=== PATIENT | female | born 1985 | race Caucasian/White ===

== ENCOUNTER 2022-09-10 18:49 | Emergency (ER) | payer OTHER, SELFPAY ==
[2022-09-10 19:42] VITALS: BP 152/96; PULSE 75; RESP 16; TEMP 37.2; O2SAT 99
--- NOTE | 2022-09-10 20:08 | ED.URI ---
HPI - URI/Sore Throat General Chief Complaint: Upper Respiratory Infection Stated Complaint: Cough Time Seen by Provider: 09/10/22 20:08 Source: patient, RN notes reviewed and old records reviewed Mode of arrival: ambulatory Limitations: no limitations History of Present Illness HPI Narrative: 37-year-old female presents to the [facility] with complaints cough for 4 weeks. States she has been having trouble sleeping. Denies any other symptoms. Related Data Home Medications Medication Instructions Recorded Confirmed bupropion HCl 75 mg tablet 75 mg PO DAILY 09/10/22 09/10/22 fluoxetine 20 mg capsule 20 mg PO DAILY 09/10/22 09/10/22 Allergies Allergy/AdvReac Type Severity Reaction Status Date / Time No Known Allergies Allergy Verified 09/10/22 20:05 Review of Systems Review of Systems: All systems reviewed & are unremarkable except as noted in HPI and below Constitutional: Constitutional: Reports no additional constitutional complaints Eyes: Eyes: Reports no additional eye complaints ENT: Reports system reviewed and no additional complaints, except as documented Cardiovascular: Cardiovascular: Reports no additional cardiovascular complaints, Denies chest pain and Denies dyspnea Respiratory: Respiratory: Reports as per HPI, Denies chest congestion, Reports cough, Denies dyspnea and Denies wheezing Gastrointestinal: Gastrointestinal: Reports no additional gastrointestinal complaints, Denies abdominal pain, Denies nausea and Denies vomiting Musculoskeletal: Musculoskeletal: Reports no additional musculoskeletal complaints Integumentary/Breasts: Skin/Breast: Reports system reviewed and no additional complaints, except as docu Neurologic: Reports system reviewed and no additional complaints, except as documented Psychiatric: Psychiatric: Reports no additional psychiatric complaints Allergic/Immunologic: Allergic/Immunologic: Reports no additional allergic/immunologic complaints [facility] Past Medical History Medical History PTSD (post-traumatic stress disorder) Surgical History Surgical History Hx of breast reduction, elective Family History Family History Grandparent Hypertension Diabetes mellitus Social History Social History Social History: Smoking status: Never smoker Second hand tobacco smoke exposure: No Alcohol intake: current Drinks per week: 9 Substance use: current Substance use type: does not use and marijuana Other substance usage details: daily at HS to fall asleep Gender identity (if verbalized by the patient): Female Sexual Orientation (if Verbalized by the Patient): Straight or Heterosexual Spiritual care concerns: No Agree to blood products: Yes Comments At the time of my signature, I reviewed and agree with the nursing past medical, surgical, social, and family history. There is no relevant family history pertinent to the patient complaint. Exam Const: General: cooperative, healthy appearing, comfortable, no acute distress, well developed, alert, average body habitus and well nourished Nutritional Appearance: well nourished and obese Orientation/consciousness: patient oriented x3 Limitations: no limitations HENMT: Head: normal to inspection Ears: hearing grossly normal bilaterally and external ears normal Face/Nose/Sinus: Normal external nose present, Normal nares present, Normal nasal mucous membranes and turbinates present and normal facial exam Face and sinus: normal facial exam Mouth: Yes Normal oral and palatal mucosa present, Yes lip normal and Yes moist mucous membranes Throat: posterior oropharynx normal and uvula midline Eyes: General: appearance normal, both eyes and all related structures Alignment and Posit
== END 2022-09-10 20:25 | disposition home or self-care (01) ==
PROVIDERS: Emergency Provider Nurse Practitioner; PCP Family Medicine
DX: J40 Bronchitis, not specified as acute or chronic (principal); F43.10 Post-traumatic stress disorder, unspecified
CPT/HCPCS: 99213; G0463

== ENCOUNTER 2023-05-15 10:11 | Outpatient (CLI) | payer OTHER, SELFPAY ==
--- NOTE | 2023-05-17 12:47 | WPDPFTINT ---
PFT Procedure Performed PFT Procedure Performed Spirometry with Pre/Post Bronchodilator Plethysmography (Lung Vol) Diffusing Cap (DLCO) Flow Vol Loop PFT Interpretation DOS: 05/15/2023 REQUESTING: Regina Curiel MD REASON FOR TESTING: Wheezing PULMONARY FUNCTION TESTS Results are reliable and reproducible. Spirometry: FEV1 is 2.55 L, 89%, normal. FVC is 3.41 L, 99%, normal.FEV1/FVC is 75%< normal. The MZJ89-16% is 2.07L, 66%, normal range. After bronchodilator, the FEV1 increases 4% and the FVC decreases 3%. These are nor significant changes. The ratio is 80%, normal. The ZKQ30-12% increases 33%, 2.72 L, over 600 ml. Lung volumes: TLC is 4.95 L, 105%. RV is 1.54 L, 109%. The RV/TLC is 31%, normal. Diffusion: DLCO is 22.1, 94%, normal. DLCO/VA is 5.10, 104%, normal. Flow volume loop: Normal. IMPRESSION: Normal spirometry, normal lung volumes, normal diffusion without response to bronchodilator. No old study to compare. Darcie Salmeron MD
== END 2023-05-15 10:12 | disposition home or self-care (01) ==
LOC: ANHPFT 10:13
PROVIDERS: PCP Family Medicine; Visit Provider Nurse Practitioner Family
DX: R06.2 Wheezing (principal)
CPT/HCPCS: 94060; 94726; 94729

== ENCOUNTER 2024-10-28 15:54 | Emergency (ER) | payer OTHER, SELFPAY ==
--- NOTE | ~2024-10-28 | XR_ITS ---
CHEST RADIOGRAPH, PA AND LATERAL CLINICAL HISTORY: cough x 1 week, wheezy on inspiration . COMPARISON: None available TECHNIQUE: PA and lateral views of the chest. FINDINGS The cardiomediastinal silhouette is unremarkable. The lungs are clear. Visualized osseous structures and soft tissues are unremarkable. IMPRESSION: No focal infiltrate or effusion. Reviewed, dictated and finalized at location A. CTOR OF MANUFACTURING
[2024-10-28 16:06] VITALS: BP 147/96; PULSE 84; RESP 15; TEMP 36.7; O2SAT 97
--- NOTE | 2024-10-28 16:07 | ED.URI ---
HPI - URI/Sore Throat General Chief Complaint: Upper Respiratory Infection Stated Complaint: Sinus Source: patient, RN notes reviewed and old records reviewed Mode of arrival: ambulatory Limitations: no limitations History of Present Illness HPI Narrative: Patient presents with complaints of expiratory wheezing. She reports that she has had a cough for a few days, went to see her primary care provider yesterday, was started on prednisone. Took 1st dose of prednisone last night, has not taken any today. Has been using albuterol inhaler that she finds during visit to this [facility] is in 2019. She says that she feels worse today than she did yesterday. She denies any fever, chills, sweats. She is not in any distress, including respiratory distress. Related Data Home Medications ?Medication ?Instructions ?Recorded ?Confirmed ?Last Taken ?Type prednisone .ROUTE 10/28/24 Unknown History Allergies Allergy/AdvReac Type Severity Reaction Status Date / Time No Known Allergies Allergy Verified 10/28/24 15:58 Review of Systems Review of Systems: All systems reviewed & are unremarkable except as noted in HPI and below Constitutional: Constitutional: Reports no additional constitutional complaints ENT: Reports system reviewed and no additional complaints, except as documented Cardiovascular: Cardiovascular: Reports no additional cardiovascular complaints Respiratory: Respiratory: Reports no additional respiratory complaints, Reports cough and Reports wheezing Gastrointestinal: Gastrointestinal: Reports no additional gastrointestinal complaints PMFSH Past Medical History Medical History PTSD (post-traumatic stress disorder) Surgical History Surgical History Hx of breast reduction, elective Family History Family History Grandparent Hypertension Diabetes mellitus Social History Social History Social History: Smoking status: Never smoker Second hand tobacco smoke exposure: No Alcohol intake: current Drinks per week: 9 Substance use: current Substance use type: marijuana Other substance usage details: smokes marijuana intermittently Do You Feel Safe in your Home?: Yes Lack of Transportation: No Lack of Food: Never True Current Housing: I Have Housing Concerned About Future Housing: No Difficulty Paying Gas/Electric Bills: No Difficulty Paying for Meds: No Currently Unemployed: No Education: Associate Degree Difficulty w/ Childcare or Family Care: No Living arrangements: with family Occupation/Education: occupation Additional occupation/education comments: veterinary clinic Gender identity (if verbalized by the patient): Female Sexual Orientation (if Verbalized by the Patient): Straight or Heterosexual Spiritual care concerns: No Agree to blood products: Yes Comments At the time of my signature, I reviewed and agree with the nursing past medical, surgical, social, and family history. There is no relevant family history pertinent to the patient complaint. Exam Const: General: cooperative, no acute distress, alert and awake Orientation/consciousness: oriented to person, oriented to place and oriented to time HENMT: Head: normal to inspection Resp: Effort & Inspection: normal respiratory effort and able to speak in complete sentences Auscultation: clear to auscultation bilaterally, no crackles, no rales, no rhonchi and wheezes scattered wheezes Cardio: Palpation: normal PMI Rate: regular rate Rhythm: regular rhythm Heart sounds: S1 normal heart sound present and S2 normal heart sound present Neuro: General: oriented to person, oriented to place and oriented to time Cranial nerves: Yes CN's II-XII intact bilaterally Psych: Appearance: grossly normal Thought process: Normal thought process present Insight: Good insight present (Psych) Judgement: Good judgement present (Psych) Course Course Level of Care: [facility] Care Visit Reevaluation(s) Date: 10/28/24 Time: 16:45 Vital Signs Vital signs: Vital Signs Temperature 98.0 F 10/28/24 16:06 Pulse Rate 84 10/28/24 16:06 Respiratory Rate 15 10/28/24 16:06 Blood Pressure 147/96 H 10/28/24 16:06 Pulse Oximetry 97 10/28/24 16:06 Oxygen Delivery Room Air 10/28/24 16:06 Temperature 98.0 F 10/28/24 16:06 Pulse Rate 84 10/28/24 16:06 Respiratory Rate 15 10/28/24 16:06 Blood Pressure 147/96 H 10/28/24 16:06 Pulse Oximetry 97 10/28/24 16:06 Oxygen Delivery Room Air 10/28/24 16:06 Reviewed MDM - URI/Sore Throat MDM Narrative Medical decision making narrative: Chest x-ray without acute findings. Patient significantly improved after she was advised to take her home dose of steroids which she had with her and had a neb treatment in clinic. Wheezing has completely resolved. Patient advised to continue with prednisone as prescribed. New prescription for albuterol inhaler sent. Patient discarded albuterol while in clinic. Discharge instructions reviewed with patient, as well as provided in writing per nursing staff. The instructions also include specific and strict return/GO TO THE ER as well as f/u information. All questions have been answered, and the patient deny any further questions with discharge and discharge plan. Some parts of this dictation were generated by voice recognition software and may contain typographical and/or grammatical inaccuracies. Differential Diagnosis Differential diagnosis: Likely upper respiratory infection, otitis media, viral infection and bronchitis Imaging Data Radiologist's impression: [facility] [address] [place] [address] XRay Report Signed Patient: Shiraz Palma : 1985 MR#: [id number] Age: 39 Acct:[id number] Loc: [facility] ADM Date: 10/28/24Attending Dr: Ordering Physician: Shantell Duong FNP Date of Service: 10/28/24 Procedure(s): XR chest 2V Accession Number(s): [id number] cc: Shantell Duong FNP; Asya Haynes APRN~ CHEST RADIOGRAPH, PA AND LATERAL CLINICAL HISTORY: cough x 1 week, wheezy on inspiration . COMPARISON: None available TECHNIQUE: PA and lateral views of the chest. FINDINGS The cardiomediastinal silhouette is unremarkable. The lungs are clear. Visualized osseous structures and soft tissues are unremarkable. IMPRESSION: No focal infiltrate or effusion. Reviewed, dictated and finalized at location A. OR COMPUTER SPECIALIST Please be advised this is a medical document. It is intended for [id number] communication. It is written in medical language and may contain unfamiliar abbreviations or verbiage. Medical documents are intended to carry relevant information, facts as evident, and the clinical opinion of the practitioner at the time of the encounter. This report may have been done utilizing a voice recognition system. Attempts have been made to correct errors. However, there may be uncorrected grammatical, spelling, and recognition errors present. The file time of this note does not necessarily represent the time of service. Dictated By: Lisset Torres MD 10/28/24 1617 Signed By: <Electronically signed by Lisset Torres MD in OV> Discharge Plan Discharge Clinical Impression: Upper respiratory infection Qualifiers: URI type: unspecified viral URI Qualified Code(s): J06.9 - Acute upper respiratory infection, unspecified Patient Disposition: Home, Self-Care Condition: Stable Instructions: Antibiotic Form, Acute Cough (ED) Additional Instructions: Take medications as prescribed. Follow with primary care provider. Emergency department for new or worse symptoms Patient Language: Japanese Prescriptions: New albuterol sulfate [Ventolin HFA] 90 mcg/actuation HFA aerosol inhaler 2 puff inhalation QID PRN (Reason: shortness of breath or wheezing) Qty: 8.5 0RF No Action prednisone .ROUTE buspirone 5 mg tablet 5 mg PO TID PRN (Reason: anxiety) Qty: 90 0RF L norgest/e.estradiol-e.estrad 0.1 mg-20 mcg (84)/10 mcg (7) tablets,dose pack,3 month See Rx Instructions PO .COMPLEX Qty: 182 0RF Rx Instructions: take 1 tablet daily following the order on blister card(s) PO bupropion HCl 300 mg tablet extended release 24 hr 300 mg PO QAM Qty: 90 1RF fluoxetine 40 mg capsule 40 mg PO DAILY Qty: 90 1RF Follow-up/Referrals: Asya Haynes, [employer] [Primary Care Provider] - Stand Alone Forms: Work/School Release IP Time of Disposition: 17:11
[2024-10-28] MEDS: IPRATROPIUM 0.5 MG/ALBUTEROL SULFATE 2.5 MG AMPUL.NEB 3 ML INHALATION (16:47)
== END 2024-10-28 17:18 | disposition home or self-care (01) ==
PROVIDERS: Emergency Provider Nurse Practitioner Family; PCP Nurse Practitioner Family
DX: J06.9 Acute upper respiratory infection, unspecified (principal); F12.90 Cannabis use, unspecified, uncomplicated
CPT/HCPCS: 71046; 99213; G0463